=== PATIENT | female | born 1985 ===

== ENCOUNTER 2018-07-08 10:54 | Inpatient (IN) | payer BC ==
[~2018-07-08] VITALS: Ht 162.7 cm; Wt 64.1 kg
[2018-07-08] VITALS (14 sets, daily range): BP systolic 97–125; BP diastolic 53–78; PULSE 82–113; TEMP 97.8–98.4
[~2018-07-08 10:54] MED LIST: MOTRIN 800800 MG/TAB PO; PERCOCET 325 MG1 TA2 PO; PRENATAL1 TA7 PO
[2018-07-08 14:53] LABS: BASO % 0.1 % (0.0-2.0); EOS % 0.3 % (0-4.0); GRAN # 5.6 (1.4-6.5); GRAN % 74.4 % (42.2-75.2); HEMOGLOBIN 11.5 g/dl (12.5-16.0); LYMPH # 1.5 (1.2-3.4); LYMPH % 20.5 % (20.0-51.0); MEAN CELL VOLUME 90 fl (80.0-100.0); MEAN CORPUSCULAR HEMOGLOBIN 31 pg (27.0-31.0); MEAN CORPUSCULAR HGB CONC 34 g/dl (33.0-37.0); MONO # 0.3 (0.1-0.6); MONO % 4.3 % (1.7-9.3); PLATELET COUNT 173 K/mm3 (130-400); RED BLOOD COUNT 3.72 M/mm3 (4.10-5.30); REDCELL DISTRIBUTION WIDTH-CV 13.1 % (11.5-14.5)
[2018-07-08 14:56] LABS: HEMATOCRIT 33.5 % (37.0-47.0)
[2018-07-08 15:01] LABS: ALBUMIN 3.7 gm/dL (3.5-5.0); BILIRUBIN,TOTAL 0.3 mg/dL (0.0-1.0); CALCIUM 8.6 mg/dL (8.4-10.2); CREATININE, serum 0.41 mg/dL (0.52-1.25); POTASSIUM 3.5 mmol/L (3.4-5.0); TOTAL PROTEIN 6.4 gm/dL (6.4-8.2)
[2018-07-09] VITALS (30 sets, daily range): BP systolic 83–119; BP diastolic 52–68; PULSE 73–115; TEMP 97.3–97.8
[2018-07-09 01:01] LABS: RPR (VDRL) Negative (Negative)
[2018-07-09 07:29] LABS: BASO % 0.1 % (0.0-2.0); GRAN # 11.2 (1.4-6.5); GRAN % 80.6 % (42.2-75.2); HEMATOCRIT 27.1 % (37.0-47.0); LYMPH % 14.6 % (20.0-51.0); MEAN CELL VOLUME 90 fl (80.0-100.0); MEAN CORPUSCULAR HEMOGLOBIN 31 pg (27.0-31.0); MEAN CORPUSCULAR HGB CONC 34 g/dl (33.0-37.0); MEAN PLATELET VOLUME 9.1 fl (7.4-10.4); MONO # 0.6 (0.1-0.6); MONO % 4.3 % (1.7-9.3); PLATELET COUNT 189 K/mm3 (130-400); RED BLOOD COUNT 3.01 M/mm3 (4.10-5.30); REDCELL DISTRIBUTION WIDTH-CV 13.2 % (11.5-14.5)
[2018-07-09 07:31] LABS: HEMOGLOBIN 9.3 g/dl (12.5-16.0)
[2018-07-09] MEDS ORDERED: MOTRIN 600600 MG/TAB PO (10:34)
[2018-07-09] MEDS ORDERED: PERCOCET 325 MG1 TA2 PO (10:34)
== END 2018-07-09 13:40 | disposition home or self-care (01) | DRG 798 ==
LOC: LDR 10:54
PROVIDERS: Obstetrics & Gynecology
PROC: 3E0P7VZ Introduction of Hormone into Female Reproductive, Via Natural or Artificial Opening (ICD-10-PCS; 2018-07-08)
PROC: 10E0XZZ Delivery of Products of Conception, External Approach (ICD-10-PCS; principal; 2018-07-09)
PROC: 10D17ZZ Extraction of Products of Conception, Retained, Via Natural or Artificial Opening (ICD-10-PCS; 2018-07-09)
DX: O36.4XX0 Maternal care for intrauterine death, not applicable or unspecified (principal); Z37.1 Single stillbirth; Z3A.15 15 weeks gestation of pregnancy; O73.0 Retained placenta without hemorrhage
CPT/HCPCS: J0690; J2270; J2405; J2704; J3010; J7120